=== PATIENT | male | born 2000 | race Caucasian/White ===

== ENCOUNTER 2022-11-19 11:27 | Day surgery (SDC) | payer OTHER ==
[~2022-11-19] VITALS: Ht 172.7 cm; Wt 67.8 kg
[~2022-11-19 11:27] MED LIST: IBUPROFEN IB200 MG PO
--- NOTE | 2022-11-19 12:45 | NUR ---
Ambulatory in Day Surgery. Pre-Op teaching done. Pt verbalizes understanding. Patient confirms NPO status and agrees with scheduled surgery. Patient reports completing Chlorhexadine shower X2 prior to admission to hospital. Patient States Post-Procedure ride home has been arranged. History, Chart, Medications and Allergies reviewed before start of procedure. PT TO [facility] ACCOMPANIED BY BOTH PARENTS. PATIENT A/O X4, SIGNS FOR SELF, PARENTS IN AGREEMENT & CURRENTLY IN PROCESS OF OBTAINING POA/GUARDIANSHIP PRECAUTIONARILY. AXILLARY NERVE BLOCK PERFORMED BY ANESTHESIOLOGIST IN [facility], PARENTS & SURGEON AT BEDSIDE. PT MEDICATED WITH 1MG VERSED & 50MCG FENTANYL IVP PER MD, VITAL SIGNS MONITORED THROUGHOUT PROCEDURE. PT TOLERATED WELL, CALM & COOPERATIVE THROUGHOUT.
--- NOTE | 2022-11-19 15:00 | NUR ---
PT TO STEP ALERT AND AWAKE PARENTS AT PT BEDSID, PT ASKED TO VOID BUT WAS A LITTLE DIZZY TRIED TO USE A URINAL BUT WAS UNABLE TO VOID WITH RN PRESENT ASKED TO GO TO THE BATHROOM SO PT TAKEN BY WC AND WAS ABLE TO VOID. BACK TO BAY AND GIVEN A SNACK AND SODA VSS PT DENIES PAIN FINGERS PINK AND CAP REFILL LESS THEN 3.
--- NOTE | 2022-11-19 15:46 | NUR ---
Patient up to Ambulate with standby assist. Gait steady. Discharge instructions reviewed with patient/parents. Patient/parents verbalizes understanding. Copy given to patient/parents to take home. Dressing to procedure site clean, dry, intact with no visible drainage, swelling, erythema or bruising noted. Post-Procedure ride home has been arranged with parents. Discharged via wheelchair to private car for ride home.
== END 2022-11-19 15:35 | disposition home or self-care (01) ==
LOC: ORSCMMR 11:27
PROVIDERS: Orthopaedic Surgery
PROC: 0PSH04Z Reposition Right Radius with Internal Fixation Device, Open Approach (ICD-10-PCS; principal; 2022-11-19 12:00)
DX: S52.551A Other extraarticular fracture of lower end of right radius, initial encounter for closed fracture (principal); V49.9XXA Car occupant (driver) (passenger) injured in unspecified traffic accident, initial encounter; F84.0 Autistic disorder
CPT/HCPCS: C1713; J0690; J2250; J2704; J3010; J7120